=== PATIENT | female | born 1995 | race American Indian/Alaskan Native ===

== ENCOUNTER 2016-11-22 19:43 | Emergency (ER) | payer MEDICAID ==
[2016-11-22 21:04] VITALS: BP 127/76
[2016-11-22 21:52] LABS: Basophils % (Auto) 0.6 % (0.0-1.8); Hematocrit 43.4 % (30.3-42.9); Hemoglobin 14.4 gm/dl (10.1-14.3); Mean Corpuscular HGB Conc 33 % (30-34); Mean Corpuscular Hemoglobin 29 pg (28-32); Mean Corpuscular Volume 87 fl (79-97); Platelet Count 274 K/mm3 (140-440); Red Blood Count 4.97 M/mm3 (3.65-5.03); Red Cell Distribution Width 13.5 % (13.2-15.2); White Blood Count 8.1 K/mm3 (4.5-11.0)
--- NOTE | 2016-11-24 04:28 | ED Elopement Review ---
ED Pt Elopement review - Results review Lab results: Laboratory Tests 11/22/16 11/22/16 21:19 21:19 WBC 8.1 RBC 4.97 Hgb 14.4 H Hct 43.4 H MCV 87 MCH 29 MCHC 33 RDW 13.5 Plt Count 274 Lymph % (Auto) 17.6 [place] % (Auto) 8.6 H Eos % (Auto) 0.0 Baso % (Auto) 0.6 Lymph # 1.4 [place] # 0.7 Eos # 0.0 Baso # 0.0 Seg Neutrophils % 73.2 H Seg Neutrophils # 5.9 HCG, Quant [id number] H - Call Back decision Pt Call Back Decision: Call pt to return to ED MAY
== END 2016-11-22 21:20 | disposition left against medical advice (07) ==
LOC: ED 19:43
DX: N93.9 Abnormal uterine and vaginal bleeding, unspecified (principal); Z53.21 Procedure and treatment not carried out due to patient leaving prior to being seen by health care provider
CPT/HCPCS: 36415; 84702; 85025

== ENCOUNTER 2017-07-16 16:29 | Inpatient (IN) | payer MEDICAID ==
[2017-07-16] MEDS ORDERED: LACTATED RINGERS 1,000 ML ONE (17:18)
[2017-07-16 17:52] LABS: Hemoglobin 10.4 gm/dl (10.1-14.3); Mean Corpuscular HGB Conc 32 % (30-34); Mean Corpuscular Hemoglobin 27 pg (28-32); Mean Corpuscular Volume 84 fl (79-97); Platelet Count 274 K/mm3 (140-440); Red Blood Count 3.81 M/mm3 (3.65-5.03); Red Cell Distribution Width 14.7 % (13.2-15.2); White Blood Count 8.7 K/mm3 (4.5-11.0)
[2017-07-16 18:12] LABS: Alanine Aminotransferase 11 units/L (7-56); Lactate Dehydrogenase 226 units/L (91-180); Uric Acid 3.5 mg/dL (3.5-7.6)
--- NOTE | 2017-07-16 18:26 | History and Physical Report ---
History of Present Illness Date of examination: 07/16/17 (sent from office for CEZAR welch; US EDUARD 2) History of present illness: EDC Confirmation: 07/15/2017 Gestational Age: 12 4/7 weeks Past History : 2 Term Births: 0 Premature Births: 0 Living Children: 0 Para: 0 Mult. Births: 0 Prev : 0 Prev. attempt? 0 Aborta: 1 Elect. Ab: 0 Spont. Ab: 1 Ectopics: 0 # 1 Weeks Gestation: early Delivery type: SAB Comments: no D&C Past Medical History: Negative Past Medical History Past Surgical History: negative Past Medical History Anesthesia Complications: negative Anemia: negative Autoimmune Disorder: negative Bleeding Disorder: negative Blood Transfusions: negative Breast Disease: negative Diabetes: negative Heart Disease: negative Hypertension: negative Hepatitis/Liver Disease: negative Kidney Disease/UTI: negative Neurologic/Epilepsy/Migraines: negative Phlebitis/Varicosities: negative Psychiatric: negative Pulmonary Disease/Asthma: negative Thyroid Disease: negative Hospitalizations: negative Surgery (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 of genital herpes: no Partner hx. of genital herpes: no Rash, Viral, or Febrile illness since last LMP? no Varicella/Chicken Pox Status: Immunized TB Risk: no Genetic History Congenital Heart Defect: Mom: no Dad: no Adelina Disease: Mom: no Dad: no Thalassemia Mom: no Dad: no Neural Tube Defect Mom: no Dad: no Down's Syndrome Mom: no Dad: no Moreno-Sachs Mom: no Dad: no Sickle Cell Disease/Trait Mom: no Dad: no Hemophilia Mom: no Dad: no Muscular Dystrophy Mom: no Dad: no Cystic Fibrosis Mom: no Dad: no Mykel Chorea Mom: no Dad: no Mental Retardation Mom: no Dad: no Fragile X Mom: no Dad: no Other Genetic/Chromosomal Disorder Mom: no Dad: no Child w/other defect Mom: no Dad: no Enviromental Exposures Xray Exposure: no Medication, drug, or alcohol use since LMP: no Chemical/Other Exposure: no Exposure to Cat Liter: no Hx of Parvovirus (Fifth Disease): no Occupational Exposure to Children: none Active Medications: None Current Allergies: No known allergies Laboratory Results Date/Time Collected: 01/04/2017 Routine Urinalysis Color: orange Leukocytes: trace Nitrite: negative Urobilinogen: negative Protein: negative Blood: negative Ketone: large (160) Bilirubin: negative Glucose: negative Urine HCG: positive Review of Systems General Denies fever, chills, sweats, anorexia, fatigue, weakness, malaise, weight loss and sleep disorder. Denies nausea, vomiting, headache, swelling of legs, abdominal pain, vaginal discharge, vaginal bleeding and contractions. Denies vaginal discharge, incontinence, dysuria, hematuria, urinary frequency, amenorrhea, menorrhagia, abnormal vaginal bleeding, pelvic pain, genital sores, decreased libido, painful periods, painful sex, urinary urgency, hot flashes, vaginal dryness, vaginal itching and vaginal odor. CV Denies chest pains, palpitations, syncope, dyspnea on exertion, orthopnea, PND and peripheral edema. Resp Denies cough, dyspnea at rest, excessive sputum, hemoptysis, wheezing and pleurisy. GI Denies nausea, vomiting, diarrhea, constipation, change in bowel habits, abdominal pain, melena, hematochezia, jaundice, gas/bloating, indigestion/ heartburn, dysphagia and odynophagia. Endo Denies cold intolerance, heat intolerance, polydipsia, polyphagia, polyuria and unusual weight change. Breast Denies left breast lump, right breast lump, nipple discharge, bloody discharge from nipple, breast pain, abnormal mammogram and breast enlargement. MS Denies back pain, joint pain, joint swelling, muscle cramps, muscle weakness, stiffness, arthritis, sciatica, restless legs, leg pain at night and leg pain with exertion. Derm Denies rash, itching, dryness and suspicious lesions. Neuro Denies paralysis, paresthesias, headache, seizures, tremors, vertigo, transient blindness, frequent falls, frequent headaches and difficulty walking. Psych Denies depression, anxiety, irritability and mood swings. Eyes Denies blurring, diplopia, irritation, discharge, vision loss, eye pain and photophobia. ENT Denies earache, ear discharge, tinnitus, decreased hearing, nasal congestion, nosebleeds, sore throat and hoarseness. Allergy Denies urticaria, allergic rash, hay fever and recurrent infections. Heme Denies abnormal bruising, bleeding and enlarged lymph nodes. 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 Vulva/Vagina: No lesions, normal BUS, normal rugae Cervix: No lesions; no cervical motion tenderness Uterus: normal size and position, midline, mobile Fundal Ht: 12-14wk FHT: + Adnexae: no masses or tenderness Rectovaginal: no masses or tenderness Past History - Obstetrical History Expected Date of Delivery: 07/15/17 Actual Gestation: 40 Week(s) 1 Day(s) : 2 Para: 0 Hx # Term Pregnancies: 0 Number of Pregnancies: 0 Spontaneous Abortions: 1 Induced : 0 Number of Living Children: 0 Medications and Allergies Allergies Allergy/AdvReac Type Severity Reaction Status Date / Time No Known Allergies Allergy Verified 11/22/16 21:00 - Vital Signs Vital signs: Vital Signs Pulse Pulse Ox 125 H 37 L 07/16/17 16:48 07/16/17 16:48 Temp Pulse Resp BP Pulse Ox 98.3 F 84 129/69 98 07/16/17 16:52 07/16/17 18:05 07/16/17 18:05 07/16/17 17:04 - Physical Exam Breasts: Positive: deferred Cardiovascular: Regular rate, Normal S1, Normal S2 Lungs: Positive: Normal air movement Abdomen: Positive: normal appearance, soft, normal bowel sounds. Negative: distention, tenderness Genitourinary (Female): Positive: normal external genitalia Vulva: both: normal Vagina: Positive: normal moisture. Negative: discharge Cervix: Negative: lesion, discharge Uterus: Positive: normal size, normal contour Adnexa: both: normal Anus/Rectum: Positive: normal perianal skin, heme negative. Negative: rectal mass, hemorrhoids Extremities: Positive: edema Deep Tendon Reflex Grade: Normal but brisk +3 - Obstetrical FHR: category 1 Uterine Contraction Monitor Mode: External Cervical Dilatation: 0 Cervical Effacement Percentage: 0 station: -3 Uterine Contraction Pattern: Irregular Uterine Tone Measurement Phase: Resting Uterine Contraction Intensity: Mild Results Result Diagrams: 07/16/17 15:20 07/16/17 15:20 Abnormal lab results 07/16/17 Range/Units 15:20 MCH 27 L (28-32) pg All other labs normal. HBsAg Screen Negative Negative *1 Rubella Antibodies, IgG 1.27 index Immune >0.99 *2 Non-immune <0.90 Equivocal 0.90 - 0.99 Immune >0.99 ABO Grouping O *3 Rh Factor Positive *4 Please note: Prior records for this patient's ABO / Rh type are not available for additional verification. Antibody Screen Negative Negative *5 RPR Non Reactive Non Reactive *6 WBC 8.8 x10E3/uL 3.4-10.8 *7 RBC 3.87 x10E6/uL 3.77-5.28 *8 Hemoglobin 11.6 g/dL 11.1-15.9 *9 Hematocrit 34.5 % 34.0-46.6 *10 MCV 89 fL 79-97 *11 MCH 30.0 pg 26.6-33.0 *12 MCHC 33.6 g/dL 31.5-35.7 *13 RDW 14.6 % 12.3-15.4 *14 Platelets 266 x10E3/uL 150-379 *15 Neutrophils 67 % *16 Lymphs 22 % *17 Monocytes 9 % *18 Eos 1 % *19 Basos 1 % *20 ! Immature Cells <No Reported Value> *21 Neutrophils (Absolute) 5.9 x10E3/uL 1.4-7.0 *22 Lymphs (Absolute) 1.9 x10E3/uL 0.7-3.1 *23 Monocytes(Absolute) 0.8 x10E3/uL 0.1-0.9 *24 Eos (Absolute) 0.0 x10E3/uL 0.0-0.4 *25 Baso (Absolute) 0.0 x10E3/uL 0.0-0.2 *26 ! Immature Granulocytes 0 % *27 ! Immature Grans (Abs) 0.0 x10E3/uL 0.0-0.1 *28 ! NRBC <No Reported Value> *29 Hematology Comments: <No Reported Value> *30 Tests: (2) AFP Tetra ([id number]) ! Results Report *31 ! Test Results: *Screen Negative* *32 ! Gest. Age on Collection Date 16.6 WEEKS *33 ! PDF . *55 Tests: (3) Cystic Fibrosis Profile (747004) ! CF, Screen Comment: *56 RESULTS: Negative for 32 mutations analyzed Tests: (4) HB Solu + Rflx [facility] ([id number]) Hemoglobin (Hgb) Solubility Negative Negative *58 Tests: (5) Panel 694387 ([id number]) HIV Screen 4th Generation wRfx Non Reactive Non Reactive *59 Tests: (6) HCV Ab w/Rflx to Verification ([id number]) ! HCV Ab <0.1 s/co ratio 0.0-0.9 *60 Assessment and Plan 22yo @ 40 weeks Sent from office with elevated BP and c/o visual disturbance. Pt states she is no longer having any CASTELLANO, blurred vision, nor chest pain. PreE labs wnl. BP 130/70s US done EFW 7 pounds EDUARD 2 Will admit and start IOL. Explained the nature of serial IOL to pt and family. Made aware may take several days . All questions addressed.
[2017-07-16] MEDS ORDERED: ZOFRAN IV PRN (18:31)
[2017-07-16] MEDS ORDERED: ePHEDrine SULFATE IV PRN (18:31)
[2017-07-16] MEDS ORDERED: XYLOCAINE 2% INFILTRATI ONE (18:31)
[2017-07-16] MEDS ORDERED: CERVIDIL VG ONE (18:31)
[2017-07-16] MEDS ORDERED: MINERAL OIL PO PRN (18:31)
[2017-07-16] MEDS ORDERED: BRETHINE SUB-Q PRN (18:31)
[2017-07-16] MEDS ORDERED: PITOCin/NS 20 UNIT/1000ML DRIP 20 UNITS/1,000 ML BAG IV SCH (19:00)
[2017-07-17] MEDS ORDERED: AMBIEN PO PRN (01:56)
[2017-07-17] MEDS: SUBLIMAZE IV PRN ×3 (02:02→10:45)
--- NOTE | 2017-07-17 07:45 | Progress Note ---
Assessment and Plan patient c/o cramping and ctx, cervidil removed. SVE soft and midposition, favorable for pitocin today. Patient to take a quick shower and meal, then RN to start pitocin by 8:30. Plan discussed with patient,family at the bedside. all questions addressed. - Patient Problems (1) 40 weeks gestation of Current Visit: Yes Status: Acute (2) Elevated blood pressure complicating in third trimester, antepartum Current Visit: Yes Status: Acute Plan to address problem: no CASTELLANO,visual changes or epigastric pain labs reviewed NL b/ps mostly 120-130/60-80's, most recent b/p 156/97 taken during SVE (3) Oligohydramnios Current Visit: Yes Status: Acute Qualifiers: Fetus number: single or unspecified fetus Trimester: third trimester Qualified Code(s): O41.03X0 - Oligohydramnios, third trimester, not applicable or unspecified Subjective - Subjective Date of service: 07/17/17 Principal diagnosis: IOL for oligo @ 40+2 Patient reports: movement normal, contractions, no loss of fluid, no vaginal bleeding Objective - Vital Signs Vital Signs: Vital Signs - 12hr 07/16/17 07/16/17 07/16/17 20:22 20:27 20:37 Temperature Pulse Rate 75 71 75 Respiratory Rate Blood Pressure O2 Sat by Pulse 93 100 97 Oximetry 07/16/17 07/16/17 07/16/17 20:42 20:43 20:44 Temperature Pulse Rate 88 96 H 100 H Respiratory Rate Blood Pressure 138/80 O2 Sat by Pulse 99 87 Oximetry 07/16/17 07/16/17 07/16/17 20:47 20:52 20:57 Temperature Pulse Rate 90 75 68 Respiratory Rate Blood Pressure O2 Sat by Pulse 96 100 100 Oximetry 07/16/17 07/16/17 07/16/17 21:02 21:07 21:12 Temperature Pulse Rate 71 82 89 Respiratory Rate Blood Pressure O2 Sat by Pulse 100 100 100 Oximetry 07/16/17 07/16/17 07/16/17 21:17 21:22 21:27 Temperature Pulse Rate 88 75 72 Respiratory Rate Blood Pressure O2 Sat by Pulse 100 100 100 Oximetry 07/16/17 07/16/17 07/16/17 21:32 21:55 21:56 Temperature Pulse Rate 85 78 78 Respiratory Rate Blood Pressure 140/85 O2 Sat by Pulse 98 99 Oximetry 07/16/17 07/16/17 07/16/17 22:00 22:05 22:10 Temperature 97.6 F Pulse Rate 79 89 81 Respiratory 18 Rate Blood Pressure O2 Sat by Pulse 100 100 99 Oximetry 07/16/17 07/16/17 07/16/17 22:15 22:20 22:21 Temperature Pulse Rate 84 111 H 91 H Respiratory Rate Blood Pressure O2 Sat by Pulse 100 99 77 L Oximetry 07/16/17 07/16/17 07/16/17 22:25 22:30 22:31 Temperature Pulse Rate 89 91 H 104 H Respiratory Rate Blood Pressure O2 Sat by Pulse 100 100 78 L Oximetry 07/16/17 07/16/17 07/16/17 22:35 22:38 22:40 Temperature Pulse Rate 94 H 88 91 H Respiratory Rate Blood Pressure O2 Sat by Pulse 100 83 L 94 Oximetry 07/16/17 07/16/17 07/16/17 22:43 22:45 22:50 Temperature Pulse Rate 93 H 89 100 H Respiratory Rate Blood Pressure 134/67 O2 Sat by Pulse 100 100 Oximetry 07/16/17 07/16/17 07/16/17 22:55 22:58 23:00 Temperature Pulse Rate 100 H 102 H 87 Respiratory Rate Blood Pressure O2 Sat by Pulse 100 75 L 100 Oximetry 07/16/17 07/16/17 07/16/17 23:05 23:08 23:10 Temperature Pulse Rate 101 H 97 H 98 H Respiratory Rate Blood Pressure O2 Sat by Pulse 100 81 L 100 Oximetry 07/16/17 07/17/17 07/17/17 23:58 00:03 00:08 Temperature Pulse Rate 101 H 98 H 99 H Respiratory Rate Blood Pressure 124/71 O2 Sat by Pulse 100 100 100 Oximetry 07/17/17 07/17/17 07/17/17 00:09 00:13 00:18 Temperature Pulse Rate 100 H 99 H 86 Respiratory Rate Blood Pressure 125/68 O2 Sat by Pulse 99 99 Oximetry 07/17/17 07/17/17 07/17/17 00:23 00:28 00:33 Temperature Pulse Rate 77 91 H 94 H Respiratory Rate Blood Pressure O2 Sat by Pulse 100 100 100 Oximetry 07/17/17 07/17/17 07/17/17 00:38 00:43 00:44 Temperature Pulse Rate 99 H 95 H 93 H Respiratory Rate Blood Pressure 126/60 O2 Sat by Pulse 100 100 Oximetry 07/17/17 07/17/17 07/17/17 00:48 00:49 00:53 Temperature Pulse Rate 98 H 103 H 106 H Respiratory Rate Blood Pressure O2 Sat by Pulse 98 84 100 Oximetry 07/17/17 07/17/17 07/17/17 00:58 01:03 01:07 Temperature Pulse Rate 91 H 90 113 H Respiratory Rate Blood Pressure O2 Sat by Pulse 100 100 89 Oximetry 07/17/17 07/17/17 07/17/17 01:08 01:13 01:18 Temperature Pulse Rate 95 H 82 93 H Respiratory Rate Blood Pressure O2 Sat by Pulse 100 100 100 Oximetry 07/17/17 07/17/17 07/17/17 01:23 01:28 01:33 Temperature Pulse Rate 79 106 H 108 H Respiratory Rate Blood Pressure O2 Sat by Pulse 100 100 100 Oximetry 07/17/17 07/17/17 07/17/17 01:35 01:38 01:43 Temperature Pulse Rate 112 H 82 107 H Respiratory Rate Blood Pressure 131/73 O2 Sat by Pulse 90 100 100 Oximetry 07/17/17 07/17/17 07/17/17 01:48 01:53 02:03 Temperature Pulse Rate 88 109 H 95 H Respiratory Rate Blood Pressure O2 Sat by Pulse 100 100 100 Oximetry 07/17/17 07/17/17 07/17/17 02:08 02:13 02:18 Temperature Pulse Rate 94 H 84 98 H Respiratory Rate Blood Pressure O2 Sat by Pulse 100 98 99 Oximetry 07/17/17 07/17/17 07/17/17 02:23 02:28 02:33 Temperature Pulse Rate 97 H 91 H 95 H Respiratory Rate Blood Pressure O2 Sat by Pulse 100 100 100 Oximetry 07/17/17 07/17/17 07/17/17 02:38 02:43 02:46 Temperature Pulse Rate 105 H 98 H 68 Respiratory Rate Blood Pressure 126/64 O2 Sat by Pulse 99 99 79 L Oximetry 07/17/17 07/17/17 07/17/17 02:48 02:53 02:58 Temperature Pulse Rate 105 H 102 H 96 H Respiratory Rate Blood Pressure O2 Sat by Pulse 100 100 100 Oximetry 07/17/17 07/17/17 07/17/17 03:03 03:04 03:08 Temperature 97.7 F Pulse Rate 108 H 107 H 88 Respiratory Rate Blood Pressure O2 Sat by Pulse 94 93 100 Oximetry 07/17/17 07/17/17 07/17/17 03:13 03:18 03:23 Temperature Pulse Rate 82 95 H 95 H Respiratory Rate Blood Pressure O2 Sat by Pulse 100 100 100 Oximetry 07/17/17 07/17/17 07/17/17 03:25 03:28 03:33 Temperature Pulse Rate 109 H 96 H 94 H Respiratory Rate Blood Pressure O2 Sat by Pulse 94 98 100 Oximetry 07/17/17 07/17/17 07/17/17 03:36 03:38 03:43 Temperature Pulse Rate 106 H 80 92 H Respiratory Rate Blood Pressure 125/61 O2 Sat by Pulse 90 100 100 Oximetry 07/17/17 07/17/17 07/17/17 03:48 03:53 03:58 Temperature Pulse Rate 100 H 103 H 95 H Respiratory Rate Blood Pressure O2 Sat by Pulse 99 98 98 Oximetry 07/17/17 07/17/17 07/17/17 04:03 04:07 04:08 Temperature Pulse Rate 86 100 H 97 H Respiratory Rate Blood Pressure O2 Sat by Pulse 100 93 100 Oximetry 07/17/17 07/17/17 07/17/17 04:12 04:13 04:18 Temperature Pulse Rate 108 H 88 89 Respiratory Rate Blood Pressure O2 Sat by Pulse 73 L 85 99 Oximetry 07/17/17 07/17/17 07/17/17 04:23 04:28 04:33 Temperature Pulse Rate 96 H 92 H 107 H Respiratory Rate Blood Pressure O2 Sat by Pulse 100 100 100 Oximetry 07/17/17 07/17/17 07/17/17 04:38 04:43 04:44 Temperature Pulse Rate 99 H 94 H 100 H Respiratory Rate Blood Pressure 141/91 O2 Sat by Pulse 100 100 Oximetry 07/17/17 07/17/17 07/17/17 04:48 04:53 04:58 Temperature Pulse Rate 106 H 87 93 H Respiratory Rate Blood Pressure O2 Sat by Pulse 98 100 99 Oximetry 07/17/17 07/17/17 07/17/17 05:03 05:06 05:08 Temperature Pulse Rate 84 105 H 95 H Respiratory Rate Blood Pressure O2 Sat by Pulse 97 94 100 Oximetry 07/17/17 07/17/17 07/17/17 05:13 05:14 05:18 Temperature Pulse Rate 99 H 109 H 95 H Respiratory Rate Blood Pressure O2 Sat by Pulse 98 92 98 Oximetry 07/17/17 07/17/17 07/17/17 05:23 05:26 05:28 Temperature Pulse Rate 106 H 91 H 94 H Respiratory Rate Blood Pressure O2 Sat by Pulse 98 86 99 Oximetry 07/17/17 07/17/17 07/17/17 05:33 05:36 05:38 Temperature Pulse Rate 108 H 67 101 H Respiratory Rate Blood Pressure O2 Sat by Pulse 98 88 99 Oximetry 07/17/17 07/17/17 07/17/17 05:43 05:44 05:46 Temperature Pulse Rate 104 H 102 H 105 H Respiratory Rate Blood Pressure 130/71 O2 Sat by Pulse 99 93 Oximetry 07/17/17 07/17/17 07/17/17 05:48 05:59 06:04 Temperature Pulse Rate 91 H 101 H 92 H Respiratory Rate Blood Pressure O2 Sat by Pulse 100 90 98 Oximetry 07/17/17 07/17/17 07/17/17 06:09 06:14 06:15 Temperature Pulse Rate 89 86 112 H Respiratory Rate Blood Pressure O2 Sat by Pulse 99 98 87 Oximetry 07/17/17 07/17/17 07/17/17 06:19 06:22 06:24 Temperature Pulse Rate 91 H 106 H 98 H Respiratory Rate Blood Pressure O2 Sat by Pulse 98 93 100 Oximetry 07/17/17 07/17/17 07/17/17 06:29 06:34 06:39 Temperature Pulse Rate 108 H 115 H 85 Respiratory Rate Blood Pressure O2 Sat by Pulse 99 84 99 Oximetry 07/17/17 07/17/17 07/17/17 06:43 06:44 06:45 Temperature Pulse Rate 80 102 H 100 H Respiratory Rate Blood Pressure 138/69 O2 Sat by Pulse 85 100 Oximetry 07/17/17 07/17/17 07/17/17 06:49 06:50 06:55 Temperature Pulse Rate 109 H 105 H 107 H Respiratory Rate Blood Pressure O2 Sat by Pulse 99 74 L 95 Oximetry 07/17/17 07/17/17 07/17/17 06:58 07:00 07:05 Temperature Pulse Rate 72 93 H 102 H Respiratory Rate Blood Pressure O2 Sat by Pulse 74 L 100 100 Oximetry 07/17/17 07/17/17 07/17/17 07:10 07:15 07:20 Temperature Pulse Rate 103 H 104 H 89 Respiratory Rate Blood Pressure O2 Sat by Pulse 99 100 99 Oximetry 07/17/17 07/17/17 07/17/17 07:25 07:26 07:30 Temperature Pulse Rate 89 98 H 98 H Respiratory Rate Blood Pressure O2 Sat by Pulse 99 88 99 Oximetry 07/17/17 07/17/17 07/17/17 07:32 07:35 07:40 Temperature Pulse Rate 50 L 134 H 109 H Respiratory Rate Blood Pressure O2 Sat by Pulse 84 100 100 Oximetry 07/17/17 07:44 Temperature Pulse Rate 108 H Respiratory Rate Blood Pressure 156/97 O2 Sat by Pulse Oximetry - Exam Breasts: normal Cardiovascular: Regular rate Lungs: Clear to auscultation, Normal air movement Abdomen: Present: normal appearance, soft Vulva: both: normal Uterus: Present: normal FHR: auscultation normal, category 1 Uterine Contraction Monitor Mode: External Cervical Dilatation: 1 Cervical Effacement Percentage: 80 station: -2 Uterine Contraction Pattern: Irregular Uterine Tone Measurement Phase: Contraction Uterine Contraction Intensity: Mild Extremities: normal Deep Tendon Reflex Grade: Normal +2 - Labs Labs: Abnormal Labs 07/16/17 07/16/17 15:20 15:20 MCH 27 L Creatinine 0.5 L Lactate Dehydrogenase 226 H Laboratory Results - last 24 hr 07/16/17 07/16/17 07/16/17 15:20 15:20 18:00 WBC 8.7 RBC 3.81 Hgb 10.4 Hct 32.0 MCV 84 MCH 27 L MCHC 32 RDW 14.7 Plt Count 274 Creatinine 0.5 L Estimated GFR > 60 Uric Acid 3.5 AST 17 ALT 11 Lactate Dehydrogenase 226 H Blood Type O POSITIVE Antibody Screen Negative
--- NOTE | 2017-07-17 08:13 | Ultrasound Report ---
OB ULTRASOUND History: well being, gestational hypertension Technique: Transabdominal ultrasound with Doppler interrogation. Gestation: Single Position: Cephalic Amniotic Fluid: Decreased EDUARD = 2.2 cm Placenta: Fundal Placental Grade: 3 Heart Rate: 143 BPM Cervical length: Obscured BPD: 9.2 cm = 37 w 1 d HC: 33.6 cm = 38 w 3 d AC: 34.5 cm = 38 w 3 d FL: 7.5 cm = 38 w 3 d HC/AC Ratio: 0.97 Cephalic Index: 85.0 Estimated Weight: 3438 grams. 33rd percentile. Clinical age = 40 w 1 d EDC: 07/15/17 US Gest. Age = 38 w 1 d EDC: 07/29/17
[2017-07-17] MEDS ORDERED: PHENERGAN PR PRN ×2 (08:30→18:30)
[2017-07-17] MEDS ORDERED: PITOCin/NS 30 UNIT/500ML 30 UNITS/500 ML BAG IV SCH ×2 (08:30→09:00)
[2017-07-17] MEDS ORDERED: PHENERGAN PO PRN ×2 (08:30→18:30)
[2017-07-17] MEDS: LACTATED RINGERS 1,000 ML IV SCH ×2 (11:13→15:03)
[2017-07-17] MEDS ORDERED: ePHEDrine SULFATE ONE (12:39)
--- NOTE | 2017-07-17 13:03 | Anesthesia Consultation ---
Anesthesia Consult and Med Hx Date of service: 07/17/17 - Airway Anesthetic Teeth Evaluation: Good ROM Head & Neck: Adequate Mental/Hyoid Distance: Adequate Mallampati Class: Class II Intubation Access Assessment: Probably Good - Pulmonary Exam CTA: Yes - Cardiac Exam Cardiac Exam: RRR - Pre-Operative Health Status ASA Pre-Surgery Classification: ASA3 Proposed Anesthetic Plan: Spinal - Pulmonary Hx Asthma: Yes (as a child) COPD: No Hx Pneumonia: No - Cardiovascular System Hx Hypertension: Yes (gestational) - Central Nervous System Hx Seizures: No Hx Psychiatric Problems: No - Endocrine Hx Renal Disease: No Hx End Stage Renal Disease: No Hx Hypothyroidism: No Hx Hyperthyroidism: No - Hematic Hx Anemia: No Hx Sickle Cell Disease: No - Other Systems Hx Alcohol Use: No Hx Obesity: Yes - Additional Comments Anesthesia Medical History Comments: +IUP
[2017-07-17] MEDS ORDERED: NARCAN 2 MG/2 ML IV PRN (13:04)
--- NOTE | 2017-07-17 13:14 | Progress Note ---
Assessment and Plan patient comfortable s/p epidural placement. Plan of care discussed with patient and her grandmother, all questions addressed. AROM - small amount of clear/bloody fluid noted. IUPC and ISE placed without difficulty. Pit infusing @ 20mU, rn to continue to titrate for adequate labor. Anticipate , Dr. Kyle updated. - Patient Problems (1) 40 weeks gestation of Current Visit: Yes Status: Acute (2) Elevated blood pressure complicating in third trimester, antepartum Current Visit: Yes Status: Acute (3) Oligohydramnios Current Visit: Yes Status: Acute Qualifiers: Fetus number: single or unspecified fetus Trimester: third trimester Qualified Code(s): O41.03X0 - Oligohydramnios, third trimester, not applicable or unspecified Subjective - Subjective Date of service: 07/17/17 Principal diagnosis: IOL for oligo @ 40+2 Patient reports: new complaints (comfortable with epidural), movement normal Objective - Vital Signs Vital Signs: Vital Signs - 12hr 07/17/17 07/17/17 07/17/17 01:13 01:18 01:23 Temperature Pulse Rate 82 93 H 79 Respiratory Rate Blood Pressure Blood Pressure [Right] O2 Sat by Pulse 100 100 100 Oximetry 07/17/17 07/17/17 07/17/17 01:28 01:33 01:35 Temperature Pulse Rate 106 H 108 H 112 H Respiratory Rate Blood Pressure Blood Pressure [Right] O2 Sat by Pulse 100 100 90 Oximetry 07/17/17 07/17/17 07/17/17 01:38 01:43 01:48 Temperature Pulse Rate 82 107 H 88 Respiratory Rate Blood Pressure 131/73 Blood Pressure [Right] O2 Sat by Pulse 100 100 100 Oximetry 07/17/17 07/17/17 07/17/17 01:53 02:03 02:08 Temperature Pulse Rate 109 H 95 H 94 H Respiratory Rate Blood Pressure Blood Pressure [Right] O2 Sat by Pulse 100 100 100 Oximetry 07/17/17 07/17/17 07/17/17 02:13 02:18 02:23 Temperature Pulse Rate 84 98 H 97 H Respiratory Rate Blood Pressure Blood Pressure [Right] O2 Sat by Pulse 98 99 100 Oximetry 07/17/17 07/17/17 07/17/17 02:28 02:33 02:38 Temperature Pulse Rate 91 H 95 H 105 H Respiratory Rate Blood Pressure Blood Pressure [Right] O2 Sat by Pulse 100 100 99 Oximetry 07/17/17 07/17/17 07/17/17 02:43 02:46 02:48 Temperature Pulse Rate 98 H 68 105 H Respiratory Rate Blood Pressure 126/64 Blood Pressure [Right] O2 Sat by Pulse 99 79 L 100 Oximetry 07/17/17 07/17/17 07/17/17 02:53 02:58 03:03 Temperature 97.7 F Pulse Rate 102 H 96 H 108 H Respiratory Rate Blood Pressure Blood Pressure [Right] O2 Sat by Pulse 100 100 94 Oximetry 07/17/17 07/17/17 07/17/17 03:04 03:08 03:13 Temperature Pulse Rate 107 H 88 82 Respiratory Rate Blood Pressure Blood Pressure [Right] O2 Sat by Pulse 93 100 100 Oximetry 07/17/17 07/17/17 07/17/17 03:18 03:23 03:25 Temperature Pulse Rate 95 H 95 H 109 H Respiratory Rate Blood Pressure Blood Pressure [Right] O2 Sat by Pulse 100 100 94 Oximetry 07/17/17 07/17/17 07/17/17 03:28 03:33 03:36 Temperature Pulse Rate 96 H 94 H 106 H Respiratory Rate Blood Pressure Blood Pressure [Right] O2 Sat by Pulse 98 100 90 Oximetry 07/17/17 07/17/17 07/17/17 03:38 03:43 03:48 Temperature Pulse Rate 80 92 H 100 H Respiratory Rate Blood Pressure 125/61 Blood Pressure [Right] O2 Sat by Pulse 100 100 99 Oximetry 07/17/17 07/17/17 07/17/17 03:53 03:58 04:03 Temperature Pulse Rate 103 H 95 H 86 Respiratory Rate Blood Pressure Blood Pressure [Right] O2 Sat by Pulse 98 98 100 Oximetry 07/17/17 07/17/17 07/17/17 04:07 04:08 04:12 Temperature Pulse Rate 100 H 97 H 108 H Respiratory Rate Blood Pressure Blood Pressure [Right] O2 Sat by Pulse 93 100 73 L Oximetry 07/17/17 07/17/17 07/17/17 04:13 04:18 04:23 Temperature Pulse Rate 88 89 96 H Respiratory Rate Blood Pressure Blood Pressure [Right] O2 Sat by Pulse 85 99 100 Oximetry 07/17/17 07/17/17 07/17/17 04:28 04:33 04:38 Temperature Pulse Rate 92 H 107 H 99 H Respiratory Rate Blood Pressure Blood Pressure [Right] O2 Sat by Pulse 100 100 100 Oximetry 07/17/17 07/17/17 07/17/17 04:43 04:44 04:48 Temperature Pulse Rate 94 H 100 H 106 H Respiratory Rate Blood Pressure 141/91 Blood Pressure [Right] O2 Sat by Pulse 100 98 Oximetry 07/17/17 07/17/17 07/17/17 04:53 04:58 05:03 Temperature Pulse Rate 87 93 H 84 Respiratory Rate Blood Pressure Blood Pressure [Right] O2 Sat by Pulse 100 99 97 Oximetry 07/17/17 07/17/17 07/17/17 05:06 05:08 05:13 Temperature Pulse Rate 105 H 95 H 99 H Respiratory Rate Blood Pressure Blood Pressure [Right] O2 Sat by Pulse 94 100 98 Oximetry 07/17/17 07/17/17 07/17/17 05:14 05:18 05:23 Temperature Pulse Rate 109 H 95 H 106 H Respiratory Rate Blood Pressure Blood Pressure [Right] O2 Sat by Pulse 92 98 98 Oximetry 07/17/17 07/17/17 07/17/17 05:26 05:28 05:33 Temperature Pulse Rate 91 H 94 H 108 H Respiratory Rate Blood Pressure Blood Pressure [Right] O2 Sat by Pulse 86 99 98 Oximetry 07/17/17 07/17/17 07/17/17 05:36 05:38 05:43 Temperature Pulse Rate 67 101 H 104 H Respiratory Rate Blood Pressure Blood Pressure [Right] O2 Sat by Pulse 88 99 99 Oximetry 07/17/17 07/17/17 07/17/17 05:44 05:46 05:48 Temperature Pulse Rate 102 H 105 H 91 H Respiratory Rate Blood Pressure 130/71 Blood Pressure [Right] O2 Sat by Pulse 93 100 Oximetry 07/17/17 07/17/17 07/17/17 05:59 06:04 06:09 Temperature Pulse Rate 101 H 92 H 89 Respiratory Rate Blood Pressure Blood Pressure [Right] O2 Sat by Pulse 90 98 99 Oximetry 07/17/17 07/17/17 07/17/17 06:14 06:15 06:19 Temperature Pulse Rate 86 112 H 91 H Respiratory Rate Blood Pressure Blood Pressure [Right] O2 Sat by Pulse 98 87 98 Oximetry 07/17/17 07/17/1717 06:22 06:24 06:29 Temperature Pulse Rate 106 H 98 H 108 H Respiratory Rate Blood Pressure Blood Pressure [Right] O2 Sat by Pulse 93 100 99 Oximetry 07/17/17 07/17/17 07/17/17 06:34 06:39 06:43 Temperature Pulse Rate 115 H 85 80 Respiratory Rate Blood Pressure Blood Pressure [Right] O2 Sat by Pulse 84 99 85 Oximetry 07/17/17 07/17/17 07/17/17 06:44 06:45 06:49 Temperature Pulse Rate 102 H 100 H 109 H Respiratory Rate Blood Pressure 138/69 Blood Pressure [Right] O2 Sat by Pulse 100 99 Oximetry 07/17/17 07/17/17 07/17/17 06:50 06:55 06:58 Temperature Pulse Rate 105 H 107 H 72 Respiratory Rate Blood Pressure Blood Pressure [Right] O2 Sat by Pulse 74 L 95 74 L Oximetry 07/17/17 07/17/17 07/17/17 07:00 07:05 07:10 Temperature Pulse Rate 93 H 102 H 103 H Respiratory Rate Blood Pressure Blood Pressure [Right] O2 Sat by Pulse 100 100 99 Oximetry 07/17/17 07/17/17 07/17/17 07:15 07:20 07:25 Temperature Pulse Rate 104 H 89 89 Respiratory Rate Blood Pressure Blood Pressure [Right] O2 Sat by Pulse 100 99 99 Oximetry 07/17/17 07/17/17 07/17/17 07:26 07:30 07:32 Temperature Pulse Rate 98 H 98 H 50 L Respiratory Rate Blood Pressure Blood Pressure [Right] O2 Sat by Pulse 88 99 84 Oximetry 07/17/17 07/17/17 07/17/17 07:35 07:40 07:44 Temperature Pulse Rate 134 H 109 H 108 H Respiratory Rate Blood Pressure 156/97 Blood Pressure [Right] O2 Sat by Pulse 100 100 Oximetry 07/17/17 07/17/17 07/17/17 07:59 08:03 09:43 Temperature 99.2 F Pulse Rate 98 H 105 H Respiratory Rate Blood Pressure 144/87 126/83 Blood Pressure 144/87 [Right] O2 Sat by Pulse Oximetry 07/17/17 07/17/17 07/17/17 12:46 12:48 12:49 Temperature 98.6 F Pulse Rate 102 H 102 H 90 Respiratory 18 Rate Blood Pressure 140/86 Blood Pressure 140/86 [Right] O2 Sat by Pulse 99 97 Oximetry 07/17/17 07/17/17 07/17/17 12:51 12:53 12:55 Temperature Pulse Rate 94 H 79 82 Respiratory Rate Blood Pressure 131/86 134/81 133/79 Blood Pressure [Right] O2 Sat by Pulse 100 Oximetry 07/17/17 07/17/17 07/17/17 12:57 12:58 12:59 Temperature Pulse Rate 80 80 78 Respiratory Rate Blood Pressure 136/72 125/72 Blood Pressure [Right] O2 Sat by Pulse 100 Oximetry 07/17/17 07/17/17 07/17/17 13:02 13:03 13:05 Temperature Pulse Rate 78 72 73 Respiratory Rate Blood Pressure 159/70 129/67 Blood Pressure [Right] O2 Sat by Pulse 100 Oximetry 07/17/17 07/17/17 07/17/17 13:07 13:08 13:09 Temperature Pulse Rate 75 71 77 Respiratory Rate Blood Pressure 128/58 126/63 Blood Pressure [Right] O2 Sat by Pulse 100 Oximetry - Exam Breasts: normal Cardiovascular: Regular rate Lungs: Clear to auscultation, Normal air movement Abdomen: Present: normal appearance, soft, normal bowel sounds Vulva: both: normal Uterus: Present: normal FHR: auscultation normal, category 1 Uterine Contraction Monitor Mode: Internal Cervical Dilatation: 3.5 (AROM - clear/bloody fluid) Cervical Effacement Percentage: 90 station: -1 Uterine Contraction Pattern: Regular Uterine Tone Measurement Phase: Contraction Uterine Contraction Intensity: Moderate Extremities: normal Deep Tendon Reflex Grade: Normal +2 - Labs Labs: Abnormal Labs 07/16/17 07/16/17 15:20 15:20 MCH 27 L Creatinine 0.5 L Lactate Dehydrogenase 226 H Laboratory Results - last 24 hr 07/16/17 07/16/17 07/16/17 15:20 15:20 18:00 WBC 8.7 RBC 3.81 Hgb 10.4 Hct 32.0 MCV 84 MCH 27 L MCHC 32 RDW 14.7 Plt Count 274 Creatinine 0.5 L Estimated GFR > 60 Uric Acid 3.5 AST 17 ALT 11 Lactate Dehydrogenase 226 H RPR Blood Type O POSITIVE Antibody Screen Negative 07/16/17 19:27 WBC RBC Hgb Hct MCV MCH MCHC RDW Plt Count Creatinine Estimated GFR Uric Acid AST ALT Lactate Dehydrogenase RPR Nonreactive Blood Type Antibody Screen
[2017-07-17] MEDS ORDERED: ePHEDrine SULFATE IV PRN (13:18)
[2017-07-17] MEDS ORDERED: fentaNYL-BUPIV 2 MCG/ML-0.125% 200 MCG/100 ML BAG EPIDURAL SCH (14:00)
--- NOTE | 2017-07-17 18:29 | Procedure Note ---
OB Delivery Note - Delivery Date of Delivery: 07/17/17 Surgeon: TEETEE NOLAN Estimated blood loss: 300cc - Vaginal Delivery presentation: vertex Delivery position: OA Intrapartum events: none Delivery induction: cervidil Delivery augmentation: rupture of membranes, pitocin Delivery monitor: internal FHT, internal uterine Route of delivery: Delivery placenta: spontaneous Delivery cord: 3 umbilical vessels Episiotomy: none Delivery laceration: 2nd degree (bilat sulcus tears second degree coalesing into a midline second, routine repai. bilat superficial periurethral tears not repaired) Delivery repair: vicryl (2-0 and 3-0) Anesthesia: epidural - A at 1 minute: 8 at 5 minutes: 9 Gender: Female (6# 12oz)
[2017-07-17] MEDS ORDERED: TYLENOL PO PRN (18:30)
[2017-07-17] MEDS ORDERED: TUCKS PAD TP PRN (18:30)
[2017-07-17] MEDS ORDERED: LANSINOH TP PRN (18:30)
[2017-07-17] MEDS ORDERED: ZOFRAN IV PRN (18:30)
[2017-07-17] MEDS ORDERED: MILK OF MAGNESIA PO PRN (18:30)
[2017-07-17] MEDS ORDERED: DULCOLAX PR PRN (18:30)
[2017-07-17] MEDS ORDERED: BENADRYL PO PRN (18:30)
[2017-07-17] MEDS ORDERED: NORCO 5/325 PO PRN (18:30)
[2017-07-17] MEDS ORDERED: SODIUM CHLORIDE FLUSH SYRINGE 10 ML IV NR (19:00)
[2017-07-17] MEDS: MOTRIN PO SCH (21:43)
[2017-07-17] MEDS: COLACE PO SCH (21:43)
[2017-07-18] MEDS: MOTRIN PO SCH ×3 (05:12→22:31)
[2017-07-18] MEDS ORDERED: BOOSTRIX IM ONE (06:00)
[2017-07-18 06:06] LABS: Hematocrit 24.7 % (30.3-42.9); Hemoglobin 8.2 gm/dl (10.1-14.3)
--- NOTE | 2017-07-18 06:55 | Progress Note ---
Assessment and Plan - Patient Problems (1) Vaginal delivery Onset Date: ~07/17/17 Current Visit: Yes Status: Acute Plan to address problem: pt w/o complaint VSS FF below umb Lochia small Perineum swelling noted Intact H& H 07/04 drop r/t blood loss from delivery Pt is asymptomatic PO iron ordered Doing well s/p vag del P: continue pathway d/ tomorrow Subjective - Subjective Date of service: 07/18/17 (resting No c/o voiced) Principal diagnosis: day #1 s/p Interval history: EDC Confirmation: 07/15/2017 Gestational Age: 12 4/7 weeks Past History : 2 Term Births: 0 Premature Births: 0 Living Children: 0 Para: 0 Mult. Births: 0 Prev : 0 Prev. attempt? 0 Aborta: 1 Elect. Ab: 0 Spont. Ab: 1 Ectopics: 0 # 1 Weeks Gestation: early Delivery type: SAB Comments: no D&C Past Medical History: Negative Past Medical History Past Surgical History: negative Past Medical History Anesthesia Complications: negative Anemia: negative Autoimmune Disorder: negative Bleeding Disorder: negative Blood Transfusions: negative Breast Disease: negative Diabetes: negative Heart Disease: negative Hypertension: negative Hepatitis/Liver Disease: negative Kidney Disease/UTI: negative Neurologic/Epilepsy/Migraines: negative Phlebitis/Varicosities: negative Psychiatric: negative Pulmonary Disease/Asthma: negative Thyroid Disease: negative Hospitalizations: negative Surgery (Non-behavior support specialist): negative Abnormal PAP: negative N[place] Exposure: negative Infertility: negative Uterine Anomaly: negative Uterine Surgery (not C/S): negative Other Gynecologic Problems: negative Family Hx: Mother- HTN No known FH of [place] 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 of genital herpes: no Partner hx. of genital herpes: no Rash, Viral, or Febrile illness since last LMP? no Varicella/Chicken Pox Status: Immunized TB Risk: no Genetic History Congenital Heart Defect: Mom: no Dad: no Adelina Disease: Mom: no Dad: no Thalassemia Mom: no Dad: no Neural Tube Defect Mom: no Dad: no Down's Syndrome Mom: no Dad: no Moreno-Sachs Mom: no Dad: no Sickle Cell Disease/Trait Mom: no Dad: no Hemophilia Mom: no Dad: no Muscular Dystrophy Mom: no Dad: no Cystic Fibrosis Mom: no Dad: no [place] Chorea Mom: no Dad: no Mental Retardation Mom: no Dad: no Fragile X Mom: no Dad: no Other Genetic/Chromosomal Disorder Mom: no Dad: no Child w/other defect Mom: no Dad: no Enviromental Exposures Xray Exposure: no Medication, drug, or alcohol use since LMP: no Chemical/Other Exposure: no Exposure to Cat Liter: no Hx of Parvovirus (Fifth Disease): no Occupational Exposure to Children: none Active Medications: None Current Allergies: No known allergies Laboratory Results Date/Time Collected: 01/04/2017 Routine Urinalysis Color: orange Leukocytes: trace Nitrite: negative Urobilinogen: negative Protein: negative Blood: negative Ketone: large (160) Bilirubin: negative Glucose: negative Urine HCG: positive Review of Systems General Denies fever, chills, sweats, anorexia, fatigue, weakness, malaise, weight loss and sleep disorder. Denies nausea, vomiting, headache, swelling of legs, abdominal pain, vaginal discharge, vaginal bleeding and contractions. Denies vaginal discharge, incontinence, dysuria, hematuria, urinary frequency, amenorrhea, menorrhagia, abnormal vaginal bleeding, pelvic pain, genital sores, decreased libido, painful periods, painful sex, urinary urgency, hot flashes, vaginal dryness, vaginal itching and vaginal odor. CV Denies chest pains, palpitations, syncope, dyspnea on exertion, orthopnea, PND and peripheral edema. Resp Denies cough, dyspnea at rest, excessive sputum, hemoptysis, wheezing and pleurisy. GI Denies nausea, vomiting, diarrhea, constipation, change in bowel habits, abdominal pain, melena, hematochezia, jaundice, gas/bloating, indigestion/ heartburn, dysphagia and odynophagia. Endo Denies cold intolerance, heat intolerance, polydipsia, polyphagia, polyuria and unusual weight change. Breast Denies left breast lump, right breast lump, nipple discharge, bloody discharge from nipple, breast pain, abnormal mammogram and breast enlargement. MS Denies back pain, joint pain, joint swelling, muscle cramps, muscle weakness, stiffness, arthritis, sciatica, restless legs, leg pain at night and leg pain with exertion. Derm Denies rash, itching, dryness and suspicious lesions. Neuro Denies paralysis, paresthesias, headache, seizures, tremors, vertigo, transient blindness, frequent falls, frequent headaches and difficulty walking. Psych Denies depression, anxiety, irritability and mood swings. Eyes Denies blurring, diplopia, irritation, discharge, vision loss, eye pain and photophobia. ENT Denies earache, ear discharge, tinnitus, decreased hearing, nasal congestion, nosebleeds, sore throat and hoarseness. Allergy Denies urticaria, allergic rash, hay fever and recurrent infections. Heme Denies abnormal bruising, bleeding and enlarged lymph nodes. 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 Vulva/Vagina: No lesions, normal BUS, normal rugae Cervix: No lesions; no cervical motion tenderness Uterus: normal size and position, midline, mobile Fundal Ht: 12-14wk FHT: + Adnexae: no masses or tenderness Rectovaginal: no masses or tenderness Patient reports: appetite normal, voiding normally, pain well controlled : doing well Objective - Vital Signs Latest vital signs: Vital Signs Temp Pulse Resp BP BP Pulse Ox 07/18/17 01:20 98.2 F 86 20 119/54 07/17/17 20:30 99.3 F 83 20 137/67 07/17/17 19:39 86 130/73 07/17/17 19:24 94 H 134/80 07/17/17 19:09 89 137/65 07/17/17 18:54 83 130/62 07/17/17 18:46 77 129/60 07/17/17 18:43 129/60 07/17/17 18:40 86 197/87 07/17/17 18:24 93 H 140/72 07/17/17 18:09 80 134/72 07/17/17 18:07 99.3 F 134/72 07/17/17 17:54 111 H 100 07/17/17 17:49 74 135/75 100 07/17/17 17:45 68 79 L 07/17/17 17:44 69 100 07/17/17 17:39 82 99 07/17/17 17:34 78 100 07/17/17 17:29 111 H 100 07/17/17 17:24 91 H 100 07/17/17 17:19 78 138/87 100 07/17/17 17:14 69 100 07/17/17 17:09 79 100 07/17/17 17:04 73 100 07/17/17 16:59 71 100 07/17/17 16:54 73 100 07/17/17 16:49 71 100 07/17/17 16:48 71 125/76 07/17/17 16:44 84 100 07/17/17 16:39 73 100 07/17/17 16:35 76 94 07/17/17 16:34 70 100 07/17/17 16:29 72 100 07/17/17 16:24 64 100 07/17/17 16:23 67 84 07/17/17 16:19 67 130/81 100 07/17/17 16:14 72 100 07/17/17 16:09 66 100 07/17/17 16:08 74 92 07/17/17 16:04 65 100 07/17/17 15:59 66 100 07/17/17 15:54 72 100 07/17/17 15:49 65 100 07/17/17 15:48 73 124/72 07/17/17 15:44 68 100 07/17/17 15:39 68 100 07/17/17 15:35 73 86 07/17/17 15:34 73 84 07/17/17 15:29 72 100 07/17/17 15:24 72 100 07/17/17 15:19 68 100 07/17/17 15:18 65 114/63 07/17/17 15:14 65 100 07/17/17 15:09 70 100 07/17/17 15:04 67 100 07/17/17 14:59 71 100 07/17/17 14:57 98.9 F 81 118/64 07/17/17 14:54 64 99 07/17/17 14:50 66 118/64 07/17/17 14:49 65 100 07/17/17 14:44 66 99 07/17/17 14:39 69 100 07/17/17 14:34 75 99 07/17/17 14:29 85 99 07/17/17 14:24 70 100 07/17/17 14:19 69 100 07/17/17 14:18 69 125/59 07/17/17 14:14 66 99 07/17/17 14:09 64 99 07/17/17 14:04 65 100 07/17/17 13:59 64 99 07/17/17 13:54 65 99 07/17/17 13:49 65 99 07/17/17 13:48 64 111/54 07/17/17 13:44 69 99 07/17/17 13:39 69 100 07/17/17 13:36 77 114/56 07/17/17 13:34 70 100 07/17/17 13:29 68 100 07/17/17 13:24 71 100 07/17/17 13:19 70 100 07/17/17 13:14 84 100 07/17/17 13:09 77 126/63 07/17/17 13:08 71 100 07/17/17 13:07 75 128/58 07/17/17 13:05 73 129/67 07/17/17 13:03 72 100 07/17/17 13:02 78 159/70 07/17/17 12:59 78 125/72 07/17/17 12:58 80 100 07/17/17 12:57 80 136/72 07/17/17 12:55 82 133/79 07/17/17 12:53 79 134/81 100 07/17/17 12:51 94 H 131/86 07/17/17 12:49 90 140/86 07/17/17 12:48 102 H 97 07/17/17 12:46 98.6 F 102 H 18 140/86 99 07/17/17 09:43 105 H 126/83 07/17/17 08:03 99.2 F 144/87 07/17/17 07:59 98 H 144/87 07/17/17 07:44 108 H 156/97 07/17/17 07:40 109 H 100 07/17/17 07:35 134 H 100 07/17/17 07:32 50 L 84 07/17/17 07:30 98 H 99 07/17/17 07:26 98 H 88 07/17/17 07:25 89 99 07/17/17 07:20 89 99 07/17/17 07:15 104 H 100 07/17/17 07:10 103 H 99 07/17/17 07:05 102 H 100 07/17/17 07:00 93 H 100 07/17/17 06:58 72 74 L 07/17/17 06:55 107 H 95 Intake and Output 07/17/17 07/17/17 07/18/17 14:59 22:59 06:59 Intake Total 1240 120 Output Total 1300 Balance -60 120 Intake: IV 1000 Lactated Ringers 1,000 ml 1000 @ 125 mls/hr IV DIRECT DAILY Rx#:[id number] Intake, Free Water 240 120 Output: Urine 1300 Indwelling Catheter 1100 Void 200 Other: Total, Output Amount 200 Estimated Blood Loss 300 - Exam Breasts: Present: normal Cardiovascular: Present: Regular rate Lungs: Present: Normal air movement Abdomen: Present: normal appearance, soft Uterus: Present: normal, fundal height below umbilicus Extremities: Present: normal Deep Tendon Reflex Grade: Normal +2 Incision: Present: normal, dry, intact - Labs Labs: Abnormal lab results 07/18/17 Range/Units 05:42 Hgb 8.2 L (10.1-14.3) gm/dl Hct 24.7 L D (30.3-42.9) %
[2017-07-18] MEDS ORDERED: COLACE PO SCH (10:00)
[2017-07-18] MEDS: COLACE PO SCH ×2 (12:34→22:30)
[2017-07-18] MEDS: FEOSOL PO SCH ×2 (12:34→22:30)
--- NOTE | 2017-07-18 13:25 | Progress Note ---
Subjective Date of service: 07/18/17 Principal diagnosis: day #1 s/p Interval history: 1st day after normal vaginal delivery Patient is in the bed, comfortable. Pain is well under control. Ambulated well. No residual neurological deficit. No anesthesia complications. Objective - Constitutional Vitals: Vital Signs - 12hr 07/18/17 07/18/17 04:50 08:20 Temperature 98.4 F 98.3 F Pulse Rate 80 66 Respiratory 18 18 Rate Blood Pressure 114/64 110/70 [Right] - Labs CBC & Chem 7: 07/18/17 05:42 07/16/17 15:20 Labs: Abnormal lab results 07/18/17 Range/Units 05:42 Hgb 8.2 L (10.1-14.3) gm/dl Hct 24.7 L D (30.3-42.9) %
[2017-07-19] MEDS: MOTRIN PO SCH ×3 (04:29→17:36)
--- NOTE | 2017-07-19 08:16 | Progress Note ---
Assessment and Plan patient doing well, no complaints. Lochia scant, VSSAF, H&H stable, asymptomatic for anemia, . Desires d/c home today. plan for routine f/u in office. - Patient Problems (1) Vaginal delivery Onset Date: ~07/17/17 Current Visit: Yes Status: Acute (2) Anemia associated with acute blood loss Current Visit: Yes Status: Acute Plan to address problem: asymptomatic fe supplements and continue taking PNV Subjective - Subjective Date of service: 07/19/17 Principal diagnosis: day #2 s/p Patient reports: appetite normal, voiding normally, pain well controlled, ambulating normally, no dizzy ambulation, no nauseated [place]: doing well, nursing well Objective - Vital Signs Latest vital signs: Vital Signs Temp Pulse Resp BP 07/19/17 00:00 98.4 F 66 128/76 07/18/17 16:45 98.5 F 76 20 124/64 07/18/17 12:00 98.3 F 76 20 126/80 07/18/17 08:20 98.3 F 66 18 110/70 Intake and Output 07/18/17 07/19/17 07/19/17 22:59 06:59 14:59 Intake Total 480 240 Balance 480 240 Intake: Oral 480 240 Other: Total, Intake Amount 240 240 Voiding Method Toilet # Voids 1 Void 1 1 - Exam Breasts: Present: normal, Cardiovascular: Present: Regular rate Lungs: Present: Clear to auscultation, Normal air movement Abdomen: Present: normal appearance, soft Vulva: both: laceration/episiotomy Uterus: Present: normal, firm, fundal height at umbilicus Extremities: Present: normal Incision: Present: normal, dry, intact
--- NOTE | 2017-07-19 08:17 | Discharge Summary ---
Providers - Providers Date of Admission: 07/16/17 16:30 Date of discharge: 07/19/17 (desires d/c home) Attending physician: FITZ LITTLE 07/17/17 18:32 Consult to Vessel Master [CONS] Routine Reason For Exam: assistance with , SNS Primary care physician: FITZ LITTLE Hospitalization Reason for admission: induction of labor Delivery: Episiotomy: none Laceration: 2nd degree Incision: normal, dry, intact Other procedures: none complications: none Discharge diagnosis: IUP at term delivered [place] baby: female Hospital course: uncomplicated vaginal delivery after IOL for elevated b/p Condition at discharge: Good Disposition: DC-01 TO HOME OR SELFCARE - Discharge Diagnoses (1) Vaginal delivery Status: Acute (2) Anemia associated with acute blood loss Status: Acute Plan - Discharge Medications Prescriptions: Ferrous Sulfate [Feosol 325 MG tab] 325 mg PO TID #90 tablet Ibuprofen [Motrin 600 MG tab] 600 mg PO Q8H PRN #30 tablet PRN Reason: Pain - Provider Discharge Summary Activity: routine, no sex for 6 weeks, no heavy lifting 4 weeks, no strenuous exercise Diet: routine Instructions: routine Additional instructions: [] Smoking cessation referral if applicable(refer to patient education folder for contact #) [] Refer to [facility] Booklet Call your doctor immediately for: * Fever > 100.5 * Heavy vaginal bleeding ( >1 pad per hour) * Severe persistent headache * Shortness of breath * Reddened, hot, painful area to leg or breast * Drainage or odor from incision. * Keep incision clean and dry at all times and follow doctor's instructions regarding bathing/showering - Follow up plan Follow up: FITZ LITTLE MD [Primary Care Provider] - 08/19/17 (Congratulations! Please call [phone] to schedule your visit in 4 weeks. Call for any questions or concerns. )
[2017-07-19] MEDS: FEOSOL PO SCH ×2 (13:28→22:26)
[2017-07-19] MEDS: COLACE PO SCH ×2 (13:28→22:26)
[2017-07-20] MEDS: MOTRIN PO SCH ×4 (00:34→18:04)
[2017-07-20] MEDS ORDERED: LOVENOX SUB-Q ONE (01:08)
--- NOTE | 2017-07-20 01:11 | Event Note ---
Date: 07/20/17 nurse reports positive franky's sign and what appears to be swelling of left lower leg. Dopplers ordered but unable to be done until the am. Will give lovanoxx times one does at this time, hold may-go, and await doppler results.
--- NOTE | 2017-07-20 08:46 | Progress Note ---
Assessment and Plan d/c home if doppler studies normal - Patient Problems (1) Vaginal delivery Onset Date: ~07/17/17 Current Visit: Yes Status: Acute (2) Anemia associated with acute blood loss Current Visit: Yes Status: Acute Subjective - Subjective Date of service: 07/20/17 Principal diagnosis: day #3 s/p , left leg pain Patient reports: appetite normal, voiding normally, pain well controlled, ambulating normally, no dizzy ambulation, no nauseated Ingram: doing well Objective - Vital Signs Latest vital signs: Vital Signs Temp Pulse Resp BP 07/20/17 00:30 98.3 F 78 20 137/88 07/19/17 16:21 98.6 F 102 H 20 124/90 07/19/17 13:00 98.3 F 78 18 124/74 07/19/17 08:50 98.2 F 75 19 120/75 Intake and Output 07/19/17 07/20/17 07/20/17 22:59 06:59 14:59 Intake Total 720 Balance 720 Intake: Oral 480 Intake, Free Water 240 Other: Total, Intake Amount 480 Voiding Method Toilet # Voids Void 1 - Exam Breasts: Present: normal Cardiovascular: Present: Regular rate Lungs: Present: Clear to auscultation, Normal air movement Abdomen: Present: normal appearance, soft, normal bowel sounds Vulva: both: laceration/episiotomy Uterus: Present: normal, firm, fundal height at umbilicus Extremities: Present: edema (ankle and foot, 2+ with slight pitting) Deep Tendon Reflex Grade: Normal +2 Incision: Present: normal, dry, intact Comments: patient denies pain in calf, c/o pain at crease of ankle and on top of foot. awaiting doppler studies.
[2017-07-20] MEDS: COLACE PO SCH (12:00)
[2017-07-20] MEDS: FEOSOL PO SCH (12:00)
[2017-07-20 17:35] VITALS: BP 122/67
== END 2017-07-20 18:45 | disposition home or self-care (01) | DRG 774 ==
LOC: TRG 16:29 → LD 16:30 → TRG 16:30 → OB 07-17 19:58
PROVIDERS: ADMIT Obstetrics & Gynecology; ATTEND Obstetrics & Gynecology
PROC: 10E0XZZ Delivery of Products of Conception, External Approach (ICD-10-PCS; principal; 2017-07-17)
PROC: 0KQM0ZZ Repair Perineum Muscle, Open Approach (ICD-10-PCS; 2017-07-17)
PROC: 3E0R3CZ (ICD-10-PCS; 2017-07-17)
PROC: 3E0P7GC Introduction of Other Therapeutic Substance into Female Reproductive, Via Natural or Artificial Opening (ICD-10-PCS; 2017-07-17)
PROC: 00HU33Z Insertion of Infusion Device into Spinal Canal, Percutaneous Approach (ICD-10-PCS; 2017-07-17)
DX: O13.4 Gestational [pregnancy-induced] hypertension without significant proteinuria, complicating childbirth (principal); Z3A.40 40 weeks gestation of pregnancy; Z37.0 Single live birth; O70.1 Second degree perineal laceration during delivery; O41.03X0 Oligohydramnios, third trimester, not applicable or unspecified; Z82.49 Family history of ischemic heart disease and other diseases of the circulatory system; D62 Acute posthemorrhagic anemia; O99.52 Diseases of the respiratory system complicating childbirth; J45.909 Unspecified asthma, uncomplicated; O99.214 Obesity complicating childbirth; E66.9 Obesity, unspecified; Z68.37 Body mass index [BMI] 37.0-37.9, adult; O90.81 Anemia of the puerperium
CPT/HCPCS: 36415; 76816; 82565; 83615; 84450; 84460; 84550; 85014; 85018; 85027; 86592; 86850; 86900; 86901; 90471; 90715; 99211; A6250; G0463; J1650; J2405; J2590; J3010; J7120